=== PATIENT | male | born 1995 | race Caucasian/White ===

== ENCOUNTER 2020-07-31 13:56 | Outpatient (CLI) | payer OTHER | END 2020-07-31 13:57 | disposition home or self-care (01) | LOC: CSHULT 13:56 | PROVIDERS: ATTEND Family Medicine | DX: E78.00 Pure hypercholesterolemia, unspecified (principal); Z82.49 Family history of ischemic heart disease and other diseases of the circulatory system | CPT/HCPCS: 93306 ==